=== PATIENT | female | born 1955 | race Caucasian/White ===

== ENCOUNTER 2024-12-06 13:57 | Outpatient (CLI) | payer OTHER | END 2024-12-06 13:59 | disposition home or self-care (01) | LOC: NUCLEAR 13:57 | PROVIDERS: ATTEND Family Medicine | DX: M81.0 Age-related osteoporosis without current pathological fracture (principal) ==

== ENCOUNTER 2024-12-14 10:02 | Outpatient (CLI) | payer OTHER | END 2024-12-14 10:29 | disposition home or self-care (01) | LOC: TOM 10:02 | DX: C18.9 Malignant neoplasm of colon, unspecified (principal) | CPT/HCPCS: 71260; 74177; Q9965 ==

== ENCOUNTER 2025-01-09 13:15 | Outpatient (CLI) | payer OTHER | END 2025-01-09 13:17 | disposition home or self-care (01) | LOC: RAD 13:15 | PROVIDERS: ATTEND Surgery | DX: D37.4 Neoplasm of uncertain behavior of colon (principal); D12.3 Benign neoplasm of transverse colon; R19.5 Other fecal abnormalities ==

== ENCOUNTER 2025-01-09 14:14 | Outpatient (CLI) | payer OTHER | END 2025-01-09 14:21 | disposition home or self-care (01) | LOC: EKG 14:14 | PROVIDERS: ATTEND Surgery | DX: I10 Essential (primary) hypertension (principal) ==

== ENCOUNTER 2025-01-12 12:00 | Inpatient (IN) | payer OTHER ==
[~2025-01-12] VITALS: Ht 160 cm; Wt 58.1 kg
[2025-01-12] MEDS ORDERED: ROSUVASTATIN CAL5 MG PO (13:02)
[2025-01-12 13:03] VITALS: BP 110/60
[2025-01-18] MEDS ORDERED: CEFTRIAXONE SODIUM 2,000 MG VIAL ONE (12:38)
[2025-01-18] MEDS ORDERED: METRONIDAZOLE/SODIUM CHLORIDE 500 MG/100 ML PIGGYBACK IV ONE ×2 (12:38→17:38)
[2025-01-18] MEDS ORDERED: 0.9 % SODIUM CHLORIDE 1,000 ML IV SCH (15:00)
[2025-01-18] MEDS ORDERED: OxyCODONE HCL 5 MG TABLET (ROXICODONE) PO PRN (15:00)
[2025-01-18] MEDS ORDERED: ONDANSETRON HCL 2 MG/ML VIAL IV PRN (15:00)
[2025-01-18] MEDS ORDERED: MORPHINE SULFATE 4 MG/ML CARTRIDGE IV PRN (15:00)
[2025-01-18] MEDS ORDERED: DEXTROSE 50 % IN WATER 0.5 G/ML DISP.SYRIN IV PRN (15:00)
[2025-01-18] MEDS ORDERED: SUGAMMADEX SODIUM 200 MG/2 ML VIAL IV ONE (15:11)
[2025-01-18] MEDS ORDERED: MORPHINE SULFATE 4 MG/ML VIAL IV ONE ×3 (16:40→17:10)
[2025-01-18] MEDS ORDERED: METRONIDAZOLE/SODIUM CHLORIDE 500 MG/100 ML PIGGYBACK IV SCH (17:00)
[2025-01-18] MEDS ORDERED: HYOSCYAMINE SULFATE 0.125 MG TAB.SUBL SL SCH (17:00)
[2025-01-18] MEDS ORDERED: POLYETHYLENE GLYCOL 3350 17 GM BLIST.PACK PO SCH (17:00)
[2025-01-18] MEDS ORDERED: GABAPENTIN 300 MG CAPSULE PO SCH (17:00)
[2025-01-18] MEDS ORDERED: MORPHINE SULFATE 2 MG/ML CARTRIDGE IV ONE (18:00)
[2025-01-18 18:22] LABS: HEMATOCRIT 41.5 % (36.0-45.00); HEMOGLOBIN 13.7 g/dL (12.0-15.00); MEAN CELL VOLUME 98.6 fL (80.00-100.00); MEAN CORPUSCULAR HEMOGLOBIN 32.5 pg (27.00-32.0); MEAN CORPUSCULAR HGB CONC 32.9 g/dl (32.0-36.0); PLATELET COUNT 219 K/uL (150-450); RED BLOOD COUNT 4.21 M/uL (4.00-6.00); RED CELL DISTRIBUTION WIDTH 12.7 % (11.5-14.5)
[2025-01-18 18:44] VITALS: BP 142/70; O2SAT 99
[2025-01-18 18:54] LABS: ALBUMIN 3.3 gm/dL (3.4-5.0); CALCIUM 8.6 mg/dL (8.5-10.1); CREATININE SERUM 0.58 mg/dL (0.55-1.02); GFR 103.08; MAGNESIUM 1.7 mg/dL (1.8-2.4); PHOSPHOROUS 4.1 mg/dL (2.5-4.9); POTASSIUM 4.06 mEq/L (3.5-5.1)
[2025-01-18] MEDS ORDERED: ACETAMINOPHEN 500 MG GEL..CAP PO SCH (20:00)
[2025-01-18] MEDS ORDERED: CELECOXIB 200 MG CAPSULE PO SCH (21:00)
[2025-01-18] MEDS ORDERED: FAMOTIDINE/PF 20 MG/2 ML VIAL IV PUSH SCH (21:00)
[2025-01-19] VITALS: BP 137/81; O2SAT 98
[2025-01-19 06:25] LABS: HEMATOCRIT 36.6 % (36.0-45.00); HEMOGLOBIN 12.7 g/dL (12.0-15.00); MEAN CELL VOLUME 95.3 fL (80.00-100.00); MEAN CORPUSCULAR HEMOGLOBIN 33.2 pg (27.00-32.0); MEAN CORPUSCULAR HGB CONC 34.8 g/dl (32.0-36.0); PLATELET COUNT 197 K/uL (150-450); RED BLOOD COUNT 3.84 M/uL (4.00-6.00); RED CELL DISTRIBUTION WIDTH 12.8 % (11.5-14.5)
[2025-01-19] MEDS ORDERED: MAGNESIUM SULFATE 2,000 MG in 0.9 % SODIUM CHLORIDE 100 ML IV ONE (06:45)
[2025-01-19 07:04] LABS: CALCIUM 8.4 mg/dL (8.5-10.1); CREATININE SERUM 0.61 mg/dL (0.55-1.02); GFR 97.25; MAGNESIUM 1.6 mg/dL (1.8-2.4); PHOSPHOROUS 3.8 mg/dL (2.5-4.9); POTASSIUM 3.8 mEq/L (3.5-5.1)
[2025-01-19 08:00] VITALS: BP 105/55; O2SAT 97
[2025-01-19 16:43] VITALS: BP 135/80; O2SAT 95
[2025-01-19] MEDS ORDERED: ENOXAPARIN SODIUM 40 MG/0.4 ML SYRINGE SUBCUTANEO SCH (17:00)
[2025-01-19] MEDS ORDERED: ROSUVASTATIN 5 MG PO SCH (17:00)
[2025-01-20 00:30] VITALS: BP 102/66; O2SAT 98
[2025-01-20 08:00] VITALS: BP 164/70; O2SAT 97
[2025-01-20] MEDS ORDERED: ENOXAPARIN SODIUM 40 MG/0.4 ML SYRINGE SUBCUTANEO SCH (09:00)
[2025-01-20 16:00] VITALS: BP 126/71; O2SAT 96
[2025-01-21 00:30] VITALS: BP 101/73; O2SAT 99
[2025-01-21 08:00] VITALS: BP 130/61; O2SAT 99
[2025-01-21 15:00] VITALS: BP 107/73; O2SAT 99
[2025-01-22 00:28] VITALS: BP 117/63; O2SAT 99
[2025-01-22 06:49] LABS: HEMATOCRIT 32.4 % (36.0-45.00); HEMOGLOBIN 11.2 g/dL (12.0-15.00); MEAN CELL VOLUME 97.5 fL (80.00-100.00); MEAN CORPUSCULAR HEMOGLOBIN 33.7 pg (27.00-32.0); MEAN CORPUSCULAR HGB CONC 34.6 g/dl (32.0-36.0); PLATELET COUNT 188 K/uL (150-450); RED BLOOD COUNT 3.32 M/uL (4.00-6.00)
[2025-01-22] MEDS ORDERED: BENZONATATE 100 MG CAPSULE PO SCH (07:30)
[2025-01-22 07:41] LABS: ALBUMIN 2.5 gm/dL (3.4-5.0); BILIRUBIN TOTAL 0.6 mg/dL (0.3-1.2); CALCIUM 8.3 mg/dL (8.5-10.1); CREATININE SERUM 0.44 mg/dL (0.55-1.02); GFR 141.78; GLOBULINA 2.3 G/DL (2.4-3.5); POTASSIUM 4.13 mEq/L (3.5-5.1); TOTAL PROTEIN 4.8 gm/dL (6.4-8.2)
[2025-01-22] MEDS ORDERED: BISMUTH SUBSALICYLATE 524 MG/30 ML BLIST.PACK PO STA (11:02)
[2025-01-22] MEDS ORDERED: HYOSCYAMINE0.125 M1 SL (11:03)
[2025-01-22] MEDS ORDERED: TRAM1TAB98 PO (11:04)
[2025-01-22] MEDS ORDERED: PEPTO-BISM262 MG/15 PO (11:04)
[2025-01-22] MEDS ORDERED: PEPCID AC20 MG PO (11:04)
[2025-01-22] MEDS ORDERED: LOPERAMIDE HCL 2 MG CAPSULE PO STA (11:37)
== END 2025-01-22 13:21 | disposition home or self-care (01) | DRG 331 ==
LOC: O/R 01-18 09:09 → SURH 01-18 12:00 → SURG 01-18 15:55 → SURH 01-18 18:45 → SURG 01-22 13:21
PROVIDERS: Internal Medicine; ADMIT Surgery; ATTEND Surgery
PROC: 07BB4ZZ Excision of Mesenteric Lymphatic, Percutaneous Endoscopic Approach (ICD-10-PCS; 2025-01-18)
PROC: 0DJD8ZZ Inspection of Lower Intestinal Tract, Via Natural or Artificial Opening Endoscopic (ICD-10-PCS; 2025-01-18)
PROC: 0DTG4ZZ Resection of Left Large Intestine, Percutaneous Endoscopic Approach (ICD-10-PCS; principal; 2025-01-18 18:45)
DX: D37.4 Neoplasm of uncertain behavior of colon (principal); D12.3 Benign neoplasm of transverse colon; R19.5 Other fecal abnormalities

== ENCOUNTER 2025-02-13 14:24 | Outpatient (CLI) | payer OTHER ==
[~2025-02-13 14:24] MED LIST: HYOSCYAMINE0.125 M1 SL; PEPCID AC20 MG PO; PEPTO-BISM262 MG/15 PO; ROSUVASTATIN CAL5 MG PO; TRAM1TAB98 PO
== END 2025-02-13 14:27 | disposition home or self-care (01) ==
LOC: MAMO-SONO 14:24
PROVIDERS: ATTEND Family Medicine
DX: N60.11 Diffuse cystic mastopathy of right breast (principal); N60.12 Diffuse cystic mastopathy of left breast; Z12.31 Encounter for screening mammogram for malignant neoplasm of breast

== ENCOUNTER 2025-02-15 11:06 | Outpatient (CLI) | payer OTHER | END 2025-02-15 11:07 | disposition home or self-care (01) | LOC: TOM 11:06 | PROVIDERS: ATTEND Surgery | DX: D37.4 Neoplasm of uncertain behavior of colon (principal); D12.3 Benign neoplasm of transverse colon; R19.5 Other fecal abnormalities | CPT/HCPCS: 74177; Q9965 ==

== ENCOUNTER 2025-09-12 07:16 | Outpatient (CLI) | payer OTHER | END 2025-09-12 07:26 | disposition home or self-care (01) | LOC: TOM 07:16 | DX: R93.3 Abnormal findings on diagnostic imaging of other parts of digestive tract (principal) | CPT/HCPCS: 74177; Q9965 ==

== ENCOUNTER 2025-09-29 08:02 | Emergency (ER) | payer OTHER ==
[~2025-09-29] VITALS: Ht 160 cm; Wt 55.8 kg
[2025-09-29] MEDS ORDERED: FAMOtidine 10 MG/ML (4ML VIAL) IV PUSH ONE (09:15)
[2025-09-29] MEDS ORDERED: 0.9 % SODIUM CHLORIDE 1,000 ML IV SCH (09:15)
[2025-09-29] MEDS ORDERED: ONDANSETRON HCL 4 MG in 0.9 % SODIUM CHLORIDE 50 ML IV ONE (09:15)
[2025-09-29] MEDS ORDERED: ACETAMINOPHEN 500 MG GEL..CAP PO ONE ×2 (09:15→10:52)
[2025-09-29] MEDS ORDERED: ONDANSETRON HCL 2 MG/ML VIAL ONE (10:52)
[2025-09-29] MEDS ORDERED: FAMOTIDINE/PF 20 MG/2 ML VIAL ONE (10:53)
[2025-09-29 10:55] LABS: BASO % 0.2 % (0.1-1.2); EOS # 0.01 (0.04-0.54); EOS % 0.1 % (0.7-7.0); LYMPH # 1.74 (1.18-3.74); LYMPH % 18.9 % (19.3-53.1); MEAN PLATELET VOLUME 10.10 fl (9.4-12.4); MONO # 0.64 (0.24-0.82); MONO % 6.9 % (4.7-12.5); NEUT # 6.76 (1.56-6.13); NEUT % 73.5 % (34.0-71.1); RED CELL DISTRIBUTION WIDTH 12.0 % (11.6-14.4)
[2025-09-29 11:09] LABS: INR 0.97
[2025-09-29 12:20] LABS: URINE APPEARANCE Clear; URINE BILIRRUBIN Negative (NEGATIVE); URINE BLOOD Negative; URINE COLOR Yellow; URINE GLUCOSE Negative (NEGATIVE); URINE KETONE 15 (NEGATIVE); URINE LEUKOCYTE Negative; URINE NITRATE Negative; URINE PROTEIN Negative (NEGATIVE); URINE UROBILINOGEN 0.2 E.U./dl
[2025-09-29 12:21] LABS: ALT/SGPT 28.0 U/L (12-78); AST/SGOT 28.0 U/L (15-37); BILIRUBIN TOTAL 0.71 mg/dL (0.3-1.2); BUN CREA RATIO 16.0 (7.0-25.0); CREATININE SERUM 0.67 mg/dL (0.55-1.02); GFR 87.01; GLOBULINA 2.9 G/DL (2.4-3.5); GLUCOSE FASTING 84.0 mg/dL (65-100); OSMOLALITY SERUM 269.0 MOSM/KG (275-295)
[2025-09-29 12:24] LABS: URINE BACTERIA 7.1 uL (0.0-1933); URINE EPITHELIAL CELLS 3.8 uL (0.0-38.8); URINE RBC 3.5 uL (0.0-20.8); URINE WBC 9.9 uL (0.0-23.2)
[2025-09-29 12:37] LABS: URINE CAST 0.43 uL (0.0-1.40)
[2025-09-29] MEDS ORDERED: TAMS0.4C PO (14:25)
[2025-09-29] MEDS ORDERED: PEPCID AC20 MG PO (14:25)
[2025-09-29] MEDS ORDERED: AMOX1TAB5 PO (14:25)
== END 2025-09-29 15:00 | disposition home or self-care (01) ==
LOC: ER 08:02
PROVIDERS: General Practice
DX: R33.8 Other retention of urine (principal)
CPT/HCPCS: 36415; 51702; 74176; 96365; 96366; 99284; J2405; J3490; J7030